=== PATIENT | female | born 1950 | race Caucasian/White ===

== ENCOUNTER 2016-08-08 12:07 | Emergency (ER) | payer OTHER ==
[2016-08-08 12:15] VITALS: BP 146/76; PULSE 80; TEMP 98.2; BMI 28.7
[2016-08-08] MEDS ORDERED: NAPROXEN 500 MG TABLET (FP) PO ONE (12:46)
[2016-08-08] MEDS ORDERED: NAPROXEN 500 MG TABLET (FP) ONE (12:48)
--- NOTE | 2016-08-08 13:50 | PDOC ---
History of Present Illness - General Chief Complaint: Pain Stated Complaint: KNEES PAIN Time Seen by Provider: 08/08/16 12:35 History Source: Patient Exam Limitations: No Limitations - History of Present Illness Initial Comments: 08/08/16 13:46 66 yr female history of DM, HTN high cholesterol , arthritis, recently arrived form [place] c/o pain to both knees. Pt states she has chronic arthritis to those knees but the last week pt has been walking more and the pain is worse. No new trauma. Past History - Past Medical History Allergies/Adverse Reactions: Allergies Allergy/AdvReac Type Severity Reaction Status Date / Time No Known Allergies Allergy Verified 08/08/16 12:11 Home Medications: Ambulatory Orders Naproxen [Naprosyn -] 500 mg PO BID PRN #28 tablet 08/08/16 Diabetes: Yes HTN: Yes Hypercholesterolemia: Yes Thyroid Disease: Yes (hypothyroid) Other medical history: arthritis - Psycho/Social/Smoking Cessation Hx Anxiety: No Suicidal Ideation: No Smoking History: Never smoked Have you smoked in the past 12 months: No Information on smoking cessation initiated: No Hx Alcohol Use: No Drug/Substance Use Hx: No Substance Use Type: None Review of Systems - Review of Systems Able to Perform ROS?: Yes Comments:: 08/08/16 13:48 Is the patient limited Kyrgyz proficient: No Constitutional: No: Symptoms Reported HEENTM: No: Symptoms Reported Respiratory: No: Symptoms reported Cardiac (ROS): No: Symptoms Reported ABD/GI: No: Symptoms Reported : No: Symptoms Reported Musculoskeletal: Yes: See HPI *Physical Exam - Vital Signs Last Vital Signs Temp Pulse Resp BP Pulse Ox 98.2 F 80 18 146/76 100 08/08/16 12:12 08/08/16 12:12 08/08/16 12:12 08/08/16 12:12 08/08/16 12:12 - Physical Exam General Appearance: Yes: Nourished, Appropriately Dressed HEENT: positive: EOMI, BEREKET Neck: positive: Normal Thyroid, Supple Respiratory/Chest: positive: Lungs Clear, Normal Breath Sounds Cardiovascular: positive: Regular Rhythm, Regular Rate Extremity: positive: Normal Capillary Refill, Normal Inspection, Normal Range of Motion, Tender (bilateral knee tenderness, no swelling or redness), Other ( FROM both knees limited pain woth extension, no crepitus or swelling ) Integumentary: positive: Normal Color, Dry, Warm Neurologic: positive: Fully Oriented, Alert, Normal Mood/Affect, Normal Response , Motor Strength 10/10 ED Treatment Course - RADIOLOGY Radiology Studies Ordered: Category Date Time Status KNEE 3 POS-LEFT [RAD] Stat Radiology 08/08/16 12:45 Taken KNEE 3 POS-RIGHT [RAD] Stat Radiology 08/08/16 12:45 Taken - Medications Given in the ED: ED Medications Discontinued Medications Generic Name Dose Route Start Last Admin Trade Name Freq PRN Reason Stop Dose Admin Naproxen 500 mg 08/08/16 12:46 08/08/16 12:50 Naprosyn - PO 08/08/16 12:47 500 mg ONCE ONE Administration Medical Decision Making - Medical Decision Making 08/08/16 13:58 cc: 66 yr female chronic knee pain worse the past week no new trauma will xray and give naprosyn refer to primary care *DC/Admit/Observation/Transfer Diagnosis at time of Disposition: Knee pain, chronic Qualifiers: Laterality: bilateral Qualified Code(s): M25.561 - Pain in right knee - Discharge Dispostion Disposition: HOME Condition at time of disposition: Good - Prescriptions Prescriptions: Naproxen [Naprosyn -] 500 mg PO BID PRN #28 tablet PRN Reason: Pain - Referrals Referrals: Tylor Nettles MD [Staff Physician] - [facility] [Provider Group] - Patient Instructions Additional Instructions: follow with the orthopedist for follow up take Naprosyn for pain as needed follow with [facility] for primary care - Attestations Scribe Attestion: 08/08/16 19:06
== END 2016-08-08 14:26 | disposition home or self-care (01) ==
LOC: JERFT 12:07
DX: M25.561 Pain in right knee (principal); I10 Essential (primary) hypertension; E11.9 Type 2 diabetes mellitus without complications; E78.00 Pure hypercholesterolemia, unspecified; E03.9 Hypothyroidism, unspecified
CPT/HCPCS: 73562-TC-LT; 73562-TC-RT; 99281-25